=== PATIENT | female | born 1960 ===

== ENCOUNTER 2024-09-25 11:50 | Emergency (ER) | payer SELFPAY | END 2024-09-25 12:10 | disposition home or self-care (01) | LOC: ERS 11:50 | DX: H60.91 Unspecified otitis externa, right ear (principal); R09.81 Nasal congestion | CPT/HCPCS: 99282 ==

== ENCOUNTER 2024-10-03 10:11 | Emergency (ER) | payer SELFPAY | END 2024-10-03 11:47 | disposition home or self-care (01) | LOC: ERS 10:11 | DX: H60.92 Unspecified otitis externa, left ear (principal); I10 Essential (primary) hypertension | CPT/HCPCS: 99282 ==